=== PATIENT | male | born 1950 | race Caucasian/White ===

== ENCOUNTER 2017-04-24 14:09 | Inpatient (IN) | payer MEDICARE, MEDICAID ==
[~2017-04-24] VITALS: Ht 182.9 cm; Wt 75.0 kg
[2017-04-24] MEDS ORDERED: ondansetron/PF 4mg/2ml inj IV ONE (14:40)
[2017-04-24 15:06] LABS: BASOPHILS % (AUTO) 0 % (0-1); EOSINOPHILS # (AUTO) 0.1 X10'3 (0-0.9); EOSINOPHILS % (AUTO) 0.4 % (0-6); HEMATOCRIT 22.6 % (42.0-52.0); HEMOGLOBIN 7.9 g/dl (14.0-17.9); LYMPHOCYTES # (AUTO) 1.7 X10'3 (1.1-4.8); LYMPHOCYTES % (AUTO) 11.6 % (21-51); MEAN CORPUSCULAR HEMOGLOBIN 34.7 PG (27.0-31.0); MEAN CORPUSCULAR HGB CONC 35.1 % (33.0-36.5); MEAN CORPUSCULAR VOLUME 98.9 FL (78-98); MEAN PLATELET VOLUME 9.2 FL (7.4-10.4); MONOCYTES # (AUTO) 0.9 X10'3 (0-0.9); MONOCYTES % (AUTO) 6.4 % (2-12); NEUTROPHILS # (AUTO) 11.9 X10'3 (1.8-7.7); NEUTROPHILS % (AUTO) 81.6 % (42-75); PLATELET COUNT 322 X10'3 (140-440); RED BLOOD COUNT 2.29 X10'6 (4.70-6.10); RED CELL DISTRIBUTION WIDTH 18.8 % (11.5-14.5); WHITE BLOOD COUNT 14.6 X10'3 (4.5-11.0)
[2017-04-24] MEDS ORDERED: levoFLOXACIN-Levaquin 750MG/D5 150 ML IV ONE (15:15)
[2017-04-24 15:41] LABS: ALANINE AMINOTRANSFERASE 272 U/L (12-78); ALBUMIN 1.6 G/DL (3.4-5.0); ANION GAP 17 (8-16); BLOOD UREA NITROGEN 57 MG/DL (7-18); CALCIUM 8.1 MG/DL (8.5-10.1); CHLORIDE 107 MMOL/L (99-107); LIPASE 188 U/L (73-393); SODIUM 140 MMOL/L (135-145); TOTAL CARBON DIOXIDE 16.1 MMOL/L (24-32); TROPONIN I < 0.04 NG/ML (0.0-0.05)
[2017-04-24 16:04] LABS: ALBUMIN/GLOBULIN RATIO 0.4 (1.1-1.5); BUN/CREATININE RATIO 23.5 (5.4-32.0); CREATININE 2.43 MG/DL (0.60-1.10); GLUCOSE 108 MG/DL (70-104); TOTAL PROTEIN 5.8 G/DL (6.4-8.2); eGFR 27 ML/MIN
[2017-04-24 16:05] LABS: ASPARTATE AMINO TRANSFERASE 349 U/L (10-37)
[2017-04-24 16:07] LABS: POTASSIUM 2.7 MMOL/L (3.5-5.1)
[2017-04-24] MEDS ORDERED: furosemide 10 MG/1 ML 10ml inj IV ONE (16:20)
[2017-04-24 16:32] LABS: ALKALINE PHOSPHATASE 2422 IU/L (46-116)
[2017-04-24] MEDS: normal saline 1000ml 1,000 ML IV SCH (16:36)
[2017-04-24 17:22] LABS: PARTIAL THROMBOPLASTIN TIME 62 SECONDS (22-32); PROTHROMBIN TIME 46.2 SECONDS (9.0-12.0)
[2017-04-24 17:33] LABS: INR 4.7 INR
[2017-04-24] MEDS: potassium cl 20mEq in 1/2 NS 1,000 ML IV SCH (17:36)
[2017-04-24] MEDS ORDERED: mag hydrox/Alum hydrox/simeth 30ml oral suspension PO PRN (17:40)
[2017-04-24] MEDS ORDERED: potassium Cl 40MEQ/NS 500ml 500 ML IV PRN (17:40)
[2017-04-24] MEDS ORDERED: magnesium 2GM in 50ml NS 50 ML IV PRN (17:40)
[2017-04-24] MEDS ORDERED: morphine 2 MG/ML inj. syringe IV PRN (17:40)
[2017-04-24] MEDS ORDERED: acetaminophen 325mg tablet PO PRN (17:40)
[2017-04-24] MEDS: K and/or MAG REPLACEMENT MC SCH (17:40)
[2017-04-24] MEDS ORDERED: magnesium hydroxide 30ml (MOM) UD suspension PO PRN (17:40)
[2017-04-24] MEDS ORDERED: magnesium Cl slow-release 64mg tablet PO PRN (17:40)
[2017-04-24] MEDS ORDERED: ondansetron/PF 4mg/2ml inj IV PRN (17:40)
[2017-04-24] MEDS ORDERED: magnesium 4gm in 100ml NS 100 ML IV PRN (17:40)
[2017-04-24 18:56] LABS: HIV ANTIBODY 1&2 RAPID NON-REACTIVE (Neg)
[2017-04-24 19:18] LABS: MAGNESIUM 2.1 MG/DL (1.5-2.4)
[2017-04-24] MEDS: cefTRIAXone 1g/NS 100ml IVPB 100 ML IV SCH (19:18)
[2017-04-24] MEDS: potassium Cl 40MEQ/NS 500ml 500 ML IV PRN (19:27)
[2017-04-24] MEDS ORDERED: morphine 4 MG/ML inj SYRINge IV ONE (20:05)
[2017-04-24] MEDS ORDERED: temazepam 15mg capsule PO PRN (21:00)
[2017-04-24 21:39] LABS: CLARITY,URINE CLEAR (Clear); GLUCOSE, URINE NEGATIVE (Neg); KETONES,URINE NEGATIVE (Neg); LEUKOCYTE ESTERASE ,URINE NEGATIVE (Neg); NITRITES, URINE NEGATIVE (Neg); OCCULT BLOOD,URINE TRACE-LYSED (Neg); PH,URINE 5.5 (4.8-8.0); PROTEIN,URINE NEGATIVE (Neg); UA COLLECTION TYPE CLN CATCH MIDSTREAM; UROBILINOGEN,URINE 0.2 E.U/dL (0.2-1.0)
[2017-04-24 21:40] LABS: COLOR,URINE DARK YELLOW (Yellow)
[2017-04-24 21:46] LABS: BACTERIA,URINE NONE SEEN /HPF (Neg); MUCUS STRANDS FEW /LPF (Neg); RBC,URINE 0-2 /HPF (0-2); SQUAMOUS EPITHELIAL CELL,UR FEW /LPF (FEW); WBC,URINE NONE SEEN /HPF (0-4)
[2017-04-25] MEDS: potassium Cl 40MEQ/NS 500ml 500 ML IV PRN (00:27)
[2017-04-25] MEDS: normal saline 1000ml 1,000 ML IV SCH ×2 (02:20→07:54)
[2017-04-25] MEDS: potassium cl 20mEq in 1/2 NS 1,000 ML IV SCH ×3 (03:36→23:36)
[2017-04-25] MEDS ORDERED: NO HOME MEDS (06:42)
[2017-04-25 06:54] LABS: BASOPHILS % (AUTO) 0 % (0-1); EOSINOPHILS % (AUTO) 0.1 % (0-6); HEMOGLOBIN 7.4 g/dl (14.0-17.9); LYMPHOCYTES # (AUTO) 1.5 X10'3 (1.1-4.8); LYMPHOCYTES % (AUTO) 7.8 % (21-51); MEAN CORPUSCULAR HGB CONC 35.6 % (33.0-36.5); MEAN CORPUSCULAR VOLUME 98.4 FL (78-98); MEAN PLATELET VOLUME 8.9 FL (7.4-10.4); MONOCYTES # (AUTO) 1.1 X10'3 (0-0.9); MONOCYTES % (AUTO) 5.8 % (2-12); NEUTROPHILS # (AUTO) 16.2 X10'3 (1.8-7.7); NEUTROPHILS % (AUTO) 86.3 % (42-75); PLATELET COUNT 329 X10'3 (140-440); RED BLOOD COUNT 2.13 X10'6 (4.70-6.10); RED CELL DISTRIBUTION WIDTH 18.8 % (11.5-14.5); WHITE BLOOD COUNT 18.7 X10'3 (4.5-11.0)
[2017-04-25 06:57] LABS: PROTHROMBIN TIME 68.1 SECONDS (9.0-12.0)
[2017-04-25 07:01] LABS: HEMATOCRIT 20.9 % (42.0-52.0)
[2017-04-25 07:02] LABS: TOTAL IRON BINDING CAPACITY 193 UG/DL (259-388)
[2017-04-25 07:03] LABS: % IRON SATURATION 12 % (11-46); IRON 24 UG/DL (53-167)
[2017-04-25 07:04] LABS: INR 7.1 INR
[2017-04-25 07:05] LABS: PARTIAL THROMBOPLASTIN TIME 75 SECONDS (22-32)
[2017-04-25 07:28] LABS: ALANINE AMINOTRANSFERASE 260 U/L (12-78); ALBUMIN 1.5 G/DL (3.4-5.0); BLOOD UREA NITROGEN 58 MG/DL (7-18); CALCIUM 8.1 MG/DL (8.5-10.1); CHLORIDE 110 MMOL/L (99-107); LDL CHOLESTEROL 85 MG/DL (50-100); MAGNESIUM 2.1 MG/DL (1.5-2.4)
[2017-04-25] MEDS: cefTRIAXone 1g/NS 100ml IVPB 100 ML IV SCH (07:54)
[2017-04-25] MEDS: morphine 2 MG/ML inj. syringe IV PRN ×2 (07:55→13:57)
[2017-04-25] MEDS ORDERED: pneumococcal 23-VAL P-sac vacc 25 mcg/0.5ml vial IMVAC ONE (08:00)
[2017-04-25] MEDS: K and/or MAG REPLACEMENT MC SCH (08:00)
[2017-04-25] MEDS ORDERED: FLU VACC QS2017-18 36MOS UP/PF 60 MCG/0.5 ML SYRINGE IMVAC ONE (08:05)
[2017-04-25 08:10] LABS: ALBUMIN/GLOBULIN RATIO 0.4 (1.1-1.5); ANION GAP 16 (8-16); BUN/CREATININE RATIO 23.4 (5.4-32.0); CHOLESTEROL 72 MG/DL (0-200); CREATININE 2.48 MG/DL (0.60-1.10); GLUCOSE 86 MG/DL (70-104); HDL CHOLESTEROL 8 MG/DL (35-60); PHOSPHORUS 4.7 MG/DL (2.3-4.5); SODIUM 140 MMOL/L (135-145); TOTAL PROTEIN 5.7 G/DL (6.4-8.2); TRIGLYCERIDES 205 MG/DL (20-135); eGFR 26 ML/MIN
[2017-04-25] MEDS ORDERED: phytonadione inj. 2 MG in normal saline 100ml IV soln 99.8 ML IV ONE (08:10)
[2017-04-25 08:11] LABS: BILIRUBIN,TOTAL 25.6 MG/DL (0.1-1.0)
[2017-04-25 08:19] LABS: POTASSIUM 2.7 MMOL/L (3.5-5.1); TOTAL CARBON DIOXIDE 13.6 MMOL/L (24-32)
[2017-04-25 08:26] LABS: ASPARTATE AMINO TRANSFERASE 347 U/L (10-37)
[2017-04-25 08:28] LABS: ALKALINE PHOSPHATASE 2838 IU/L (46-116)
[2017-04-25 08:41] VITALS: BP 130/71
[2017-04-25] MEDS: potassium Cl 20 mEq SR tablet PO PRN ×3 (09:54→17:58)
[2017-04-25 10:00] VITALS: BP 87/48
[2017-04-25 10:25] VITALS: BP 88/55
[2017-04-25 10:39] VITALS: BP 108/62
[2017-04-25 15:41] LABS: INR 1.8 INR; PARTIAL THROMBOPLASTIN TIME 50 SECONDS (22-32); PROTHROMBIN TIME 18.6 SECONDS (9.0-12.0)
[2017-04-25] MEDS: lactobacillus rhamnosus 10,000 MMU CELLS/CAPSULE PO SCH (16:53)
[2017-04-25 18:00] VITALS: BP 103/62
[2017-04-25] MEDS: LACTOSE-FREE FOOD (BOOST BREEZE) 237ML PO SCH (18:00)
[2017-04-25] MEDS ORDERED: morphine 4 MG/ML inj SYRINge IV PRN (19:10)
[2017-04-25] MEDS: morphine 4 MG/ML inj SYRINge IV PRN ×2 (20:09→23:47)
[2017-04-25 22:00] VITALS: BP 91/41
[2017-04-25] MEDS ORDERED: potassium cl 20mEq in 1/2 NS 1,000 ML IV ONE (23:01)
[2017-04-26] VITALS (13 sets, daily range): BP systolic 97–136; BP diastolic 58–80
[2017-04-26] MEDS: morphine 4 MG/ML inj SYRINge IV PRN ×3 (05:52→19:57)
[2017-04-26 06:55] LABS: BASOPHILS % (AUTO) 0 % (0-1); EOSINOPHILS # (AUTO) 0.3 X10'3 (0-0.9); EOSINOPHILS % (AUTO) 2.2 % (0-6); LYMPHOCYTES # (AUTO) 1.1 X10'3 (1.1-4.8); LYMPHOCYTES % (AUTO) 8.6 % (21-51); MEAN CORPUSCULAR HEMOGLOBIN 35.6 PG (27.0-31.0); MEAN CORPUSCULAR HGB CONC 35.4 % (33.0-36.5); MEAN CORPUSCULAR VOLUME 100.4 FL (78-98); MEAN PLATELET VOLUME 9.6 FL (7.4-10.4); MONOCYTES # (AUTO) 0.8 X10'3 (0-0.9); MONOCYTES % (AUTO) 6.7 % (2-12); NEUTROPHILS # (AUTO) 10.2 X10'3 (1.8-7.7); NEUTROPHILS % (AUTO) 82.5 % (42-75); PLATELET COUNT 279 X10'3 (140-440); RED BLOOD COUNT 1.79 X10'6 (4.70-6.10); RED CELL DISTRIBUTION WIDTH 18.8 % (11.5-14.5); WHITE BLOOD COUNT 12.4 X10'3 (4.5-11.0)
[2017-04-26 07:20] LABS: INR 1.2 INR; PARTIAL THROMBOPLASTIN TIME 42 SECONDS (22-32); PROTHROMBIN TIME 12.8 SECONDS (9.0-12.0)
[2017-04-26 07:27] LABS: HEMOGLOBIN 6.4 g/dl (14.0-17.9)
[2017-04-26 07:40] LABS: ALANINE AMINOTRANSFERASE 235 U/L (12-78); ALBUMIN 1.3 G/DL (3.4-5.0); BILIRUBIN,TOTAL 24.2 MG/DL (0.1-1.0); BLOOD UREA NITROGEN 54 MG/DL (7-18); CALCIUM 7.9 MG/DL (8.5-10.1); CHLORIDE 109 MMOL/L (99-107); MAGNESIUM 1.8 MG/DL (1.5-2.4)
[2017-04-26] MEDS: multivitamins, therapeutics tablet PO SCH (07:55)
[2017-04-26] MEDS: nicotine 14mg patch - 24hr TD SCH (07:55)
[2017-04-26] MEDS: cefTRIAXone 1g/NS 100ml IVPB 100 ML IV SCH (07:55)
[2017-04-26] MEDS: lactobacillus rhamnosus 10,000 MMU CELLS/CAPSULE PO SCH ×2 (07:55→19:58)
[2017-04-26] MEDS: LACTOSE-FREE FOOD (BOOST BREEZE) 237ML PO SCH ×3 (08:00→18:00)
[2017-04-26] MEDS: hydrOXYzine 25 MG tablet PO PRN ×3 (08:05→19:57)
[2017-04-26 08:21] LABS: ANISOCYTOSIS 2+; HYPOCHROMASIA 1+; PLATELET ESTIMATE NORMAL; POLYCHROMASIA 2+; ROULEAUX 1+; TOTAL CELLS COUNTED 100
[2017-04-26 08:22] LABS: TARGET CELLS 1+
[2017-04-26 08:25] LABS: ALBUMIN/GLOBULIN RATIO 0.3 (1.1-1.5); ANION GAP 19 (8-16); BUN/CREATININE RATIO 22.5 (5.4-32.0); GLUCOSE 91 MG/DL (70-104); PHOSPHORUS 3.2 MG/DL (2.3-4.5); POTASSIUM 3.2 MMOL/L (3.5-5.1); SODIUM 139 MMOL/L (135-145); TOTAL PROTEIN 5.1 G/DL (6.4-8.2); eGFR 27 ML/MIN
[2017-04-26 08:26] LABS: ASPARTATE AMINO TRANSFERASE 281 U/L (10-37)
[2017-04-26 08:28] LABS: ALKALINE PHOSPHATASE 2160 IU/L (46-116)
[2017-04-26 08:29] LABS: TOTAL CARBON DIOXIDE 11.5 MMOL/L (24-32)
[2017-04-26] MEDS: potassium cl 20mEq in 1/2 NS 1,000 ML IV SCH ×2 (08:51→19:36)
[2017-04-26] MEDS: K and/or MAG REPLACEMENT MC SCH (08:54)
[2017-04-26] MEDS: potassium Cl 20 mEq SR tablet PO PRN ×3 (08:55→19:58)
[2017-04-26 15:21] LABS: HBSAG SCREEN Negative (Negative); HEP A AB, IGM Negative (Negative); HEP B CORE AB, IGM Negative (Negative); HEPATITIS C ANTIBODY >11.0 s/co ratio (0.0-0.9)
[2017-04-27] MEDS: morphine 4 MG/ML inj SYRINge IV PRN ×5 (02:46→21:10)
[2017-04-27] MEDS: potassium cl 20mEq in 1/2 NS 1,000 ML IV SCH (02:47)
[2017-04-27 05:00] VITALS: BP 115/68
[2017-04-27] MEDS: nicotine 14mg patch - 24hr TD SCH (07:23)
[2017-04-27] MEDS: cefTRIAXone 1g/NS 100ml IVPB 100 ML IV SCH (07:23)
[2017-04-27] MEDS: lactobacillus rhamnosus 10,000 MMU CELLS/CAPSULE PO SCH ×2 (07:24→21:10)
[2017-04-27] MEDS: hydrOXYzine 25 MG tablet PO PRN ×2 (07:24→15:51)
[2017-04-27] MEDS: multivitamins, therapeutics tablet PO SCH (07:24)
[2017-04-27 07:29] LABS: BASOPHILS % (AUTO) 0 % (0-1); EOSINOPHILS # (AUTO) 0.2 X10'3 (0-0.9); HEMOGLOBIN 8.9 g/dl (14.0-17.9); LYMPHOCYTES # (AUTO) 0.9 X10'3 (1.1-4.8); LYMPHOCYTES % (AUTO) 5.9 % (21-51); MEAN CORPUSCULAR HEMOGLOBIN 34.2 PG (27.0-31.0); MEAN CORPUSCULAR HGB CONC 35.7 % (33.0-36.5); MEAN CORPUSCULAR VOLUME 95.8 FL (78-98); MEAN PLATELET VOLUME 9.4 FL (7.4-10.4); MONOCYTES # (AUTO) 0.9 X10'3 (0-0.9); MONOCYTES % (AUTO) 5.7 % (2-12); NEUTROPHILS # (AUTO) 13.1 X10'3 (1.8-7.7); NEUTROPHILS % (AUTO) 87.4 % (42-75); PLATELET COUNT 334 X10'3 (140-440); RED BLOOD COUNT 2.61 X10'6 (4.70-6.10); RED CELL DISTRIBUTION WIDTH 21.7 % (11.5-14.5); WHITE BLOOD COUNT 14.9 X10'3 (4.5-11.0)
[2017-04-27 07:37] LABS: INR 1.2 INR; PARTIAL THROMBOPLASTIN TIME 38 SECONDS (22-32); PROTHROMBIN TIME 12.1 SECONDS (9.0-12.0)
[2017-04-27 07:45] LABS: ANISOCYTOSIS 3+; PLATELET ESTIMATE NORMAL; POLYCHROMASIA FEW; TARGET CELLS FEW; TOTAL CELLS COUNTED 100
[2017-04-27 07:56] LABS: ALANINE AMINOTRANSFERASE 255 U/L (12-78); ALBUMIN 1.4 G/DL (3.4-5.0); ANION GAP 18 (8-16); BLOOD UREA NITROGEN 47 MG/DL (7-18); CALCIUM 8.5 MG/DL (8.5-10.1); CHLORIDE 112 MMOL/L (99-107); MAGNESIUM 1.8 MG/DL (1.5-2.4); SODIUM 141 MMOL/L (135-145)
[2017-04-27 08:38] LABS: ALBUMIN/GLOBULIN RATIO 0.3 (1.1-1.5); ASPARTATE AMINO TRANSFERASE 384 U/L (10-37); BUN/CREATININE RATIO 28.7 (5.4-32.0); CREATININE 1.64 MG/DL (0.60-1.10); GLUCOSE 102 MG/DL (70-104); PHOSPHORUS 3.9 MG/DL (2.3-4.5); TOTAL PROTEIN 5.8 G/DL (6.4-8.2); eGFR 42 ML/MIN
[2017-04-27] MEDS: LACTOSE-FREE FOOD (BOOST BREEZE) 237ML PO SCH ×3 (08:41→18:00)
[2017-04-27 08:42] LABS: BILIRUBIN,TOTAL 25.9 MG/DL (0.1-1.0); POTASSIUM 3.6 MMOL/L (3.5-5.1)
[2017-04-27 08:43] LABS: ALKALINE PHOSPHATASE 2639 IU/L (46-116)
[2017-04-27 08:47] LABS: TOTAL CARBON DIOXIDE 11.4 MMOL/L (24-32)
[2017-04-27] MEDS: K and/or MAG REPLACEMENT MC SCH (09:05)
[2017-04-27 10:00] VITALS: BP 107/66
[2017-04-27] MEDS: sodium bicarbonate (8.4%) inj. 100 MEQ in sodium chloride 0.45% 900 ML IV SCH ×2 (12:47→19:32)
[2017-04-27] MEDS ORDERED: HYDR-3686 PO (14:38)
[2017-04-27 18:00] VITALS: BP 119/64
[2017-04-27 22:00] VITALS: BP 116/66
[2017-04-28] MEDS: hydrOXYzine 25 MG tablet PO PRN (01:31)
[2017-04-28] MEDS: sodium bicarbonate (8.4%) inj. 100 MEQ in sodium chloride 0.45% 900 ML IV SCH (03:30)
[2017-04-28] MEDS: morphine 4 MG/ML inj SYRINge IV PRN ×2 (05:18→09:15)
[2017-04-28 06:00] VITALS: BP 122/66
[2017-04-28 07:30] LABS: BASOPHILS % (AUTO) 0 % (0-1); EOSINOPHILS # (AUTO) 0.2 X10'3 (0-0.9); EOSINOPHILS % (AUTO) 1.6 % (0-6); HEMATOCRIT 24.3 % (42.0-52.0); HEMOGLOBIN 8.5 g/dl (14.0-17.9); LYMPHOCYTES # (AUTO) 0.8 X10'3 (1.1-4.8); LYMPHOCYTES % (AUTO) 6.1 % (21-51); MEAN CORPUSCULAR HEMOGLOBIN 33.8 PG (27.0-31.0); MEAN CORPUSCULAR HGB CONC 34.9 % (33.0-36.5); MEAN CORPUSCULAR VOLUME 96.8 FL (78-98); MEAN PLATELET VOLUME 9.7 FL (7.4-10.4); MONOCYTES # (AUTO) 0.8 X10'3 (0-0.9); MONOCYTES % (AUTO) 6.4 % (2-12); NEUTROPHILS % (AUTO) 85.9 % (42-75); PLATELET COUNT 335 X10'3 (140-440); RED BLOOD COUNT 2.52 X10'6 (4.70-6.10); RED CELL DISTRIBUTION WIDTH 23.1 % (11.5-14.5); WHITE BLOOD COUNT 12.8 X10'3 (4.5-11.0)
[2017-04-28 07:45] LABS: INR 1.3 INR; PROTHROMBIN TIME 13.3 SECONDS (9.0-12.0)
[2017-04-28] MEDS: nicotine 14mg patch - 24hr TD SCH (08:00)
[2017-04-28] MEDS: K and/or MAG REPLACEMENT MC SCH (08:00)
[2017-04-28 08:01] LABS: ALANINE AMINOTRANSFERASE 276 U/L (12-78); ALBUMIN 1.3 G/DL (3.4-5.0); BILIRUBIN,TOTAL 24.5 MG/DL (0.1-1.0); BLOOD UREA NITROGEN 45 MG/DL (7-18); CALCIUM 8.5 MG/DL (8.5-10.1); MAGNESIUM 1.8 MG/DL (1.5-2.4)
[2017-04-28 08:04] LABS: ANISOCYTOSIS 3+; PLATELET ESTIMATE NORMAL; TOTAL CELLS COUNTED 100
[2017-04-28 08:05] LABS: POIKILOCYTOSIS FEW; POLYCHROMASIA FEW; TARGET CELLS FEW
[2017-04-28] MEDS: lactobacillus rhamnosus 10,000 MMU CELLS/CAPSULE PO SCH (08:05)
[2017-04-28] MEDS: multivitamins, therapeutics tablet PO SCH (08:05)
[2017-04-28] MEDS: cefTRIAXone 1g/NS 100ml IVPB 100 ML IV SCH (08:05)
[2017-04-28 08:28] LABS: ALBUMIN/GLOBULIN RATIO 0.3 (1.1-1.5); ASPARTATE AMINO TRANSFERASE 416 U/L (10-37); BUN/CREATININE RATIO 19.4 (5.4-32.0); CHLORIDE 107 MMOL/L (99-107); CREATININE 2.32 MG/DL (0.60-1.10); GLUCOSE 90 MG/DL (70-104); PHOSPHORUS 4.4 MG/DL (2.3-4.5); TOTAL PROTEIN 5.3 G/DL (6.4-8.2); eGFR 28 ML/MIN
[2017-04-28 08:34] LABS: ALKALINE PHOSPHATASE 2430 IU/L (46-116); ANION GAP 28 (8-16); SODIUM 148 MMOL/L (135-145)
[2017-04-28 08:36] LABS: POTASSIUM 2.8 MMOL/L (3.5-5.1); TOTAL CARBON DIOXIDE 13.1 MMOL/L (24-32)
[2017-04-28] MEDS ORDERED: POTA20TA19 PO (08:49)
[2017-04-28] MEDS ORDERED: potassium Cl 20 mEq SR tablet PO PRN ×2 (08:55)
[2017-04-28] MEDS ORDERED: potassium Cl 40MEQ/NS 500ml 500 ML IV PRN ×2 (08:55)
[2017-04-28] MEDS: LACTOSE-FREE FOOD (BOOST BREEZE) 237ML PO SCH (09:18)
== END 2017-04-28 12:58 | disposition hospice, home (50) | DRG 444 ==
LOC: ER 14:10 → ED HOLD 17:36 → ORTHO 4S 04-25 07:50
PROVIDERS: ADMIT Family Medicine; ATTEND Family Medicine
PROC: 30233L1 Transfusion of Nonautologous Fresh Plasma into Peripheral Vein, Percutaneous Approach (ICD-10-PCS; principal; 2017-04-25)
PROC: 30233K1 Transfusion of Nonautologous Frozen Plasma into Peripheral Vein, Percutaneous Approach (ICD-10-PCS; 2017-04-25)
PROC: 30233N1 Transfusion of Nonautologous Red Blood Cells into Peripheral Vein, Percutaneous Approach (ICD-10-PCS; 2017-04-26)
DX: K83.1 Obstruction of bile duct (principal); E43 Unspecified severe protein-calorie malnutrition; N17.9 Acute kidney failure, unspecified; D61.818 Other pancytopenia; D68.9 Coagulation defect, unspecified; J44.9 Chronic obstructive pulmonary disease, unspecified; B17.10 Acute hepatitis C without hepatic coma; N13.30 Unspecified hydronephrosis; K70.31 Alcoholic cirrhosis of liver with ascites; E83.51 Hypocalcemia; K72.90 Hepatic failure, unspecified without coma; D50.9 Iron deficiency anemia, unspecified; E87.6 Hypokalemia; I12.9 Hypertensive chronic kidney disease with stage 1 through stage 4 chronic kidney disease, or unspecified chronic kidney disease; N18.9 Chronic kidney disease, unspecified; F17.200 Nicotine dependence, unspecified, uncomplicated; Z88.0 Allergy status to penicillin; Z79.899 Other long term (current) drug therapy; Z68.22 Body mass index [BMI] 22.0-22.9, adult
CPT/HCPCS: 36415; 71045; 74181; 76700; 80053; 80061; 80074; 81001; 82746; 83540; 83550; 83605; 83690; 83735; 83880; 84100; 84132; 84145; 84443; 84484; 85025; 85610; 85730; 86703; 86885; 86900; 86901; 86920; 87040; 87070; 90732; 93005; 96365; 96375; 97116; 97161; 99285; J0696; J1940; J1956; J2270; J2405; J3370; J3430; J3480; J7030; P9016; P9059; Q0177